=== PATIENT | female | born 1975 | race Caucasian/White ===

== ENCOUNTER 2023-09-02 13:42 | Emergency (ER) | payer BC, OTHER ==
[~2023-09-02] VITALS: Ht 162.6 cm; Wt 79.4 kg
[2023-09-02 13:58] VITALS: BP 146/66; TEMP 98.8
[2023-09-02] MEDS ORDERED: ALBU18HF2 INH (14:11)
[2023-09-02] MEDS ORDERED: ONDA4TAB5 PO (14:11)
[2023-09-02] MEDS ORDERED: ONDANSETRON 4 MG TAB.RAPDIS ONE (14:28)
[2023-09-02] MEDS ORDERED: BENZONATATE 100 MG CAPSULE PO ONE (14:28)
[2023-09-02] MEDS: ONDANSETRON 4 MG TAB.RAPDIS SL ONE (14:29)
[2023-09-02] MEDS: BENZONATATE 100 MG CAPSULE PO PRN (14:29)
[2023-09-02] MEDS ORDERED: ACETAMINOPHEN ES 500 MG TABLET ONE (14:37)
[2023-09-02] MEDS: ACETAMINOPHEN ES 500 MG TABLET PO ONE (14:46)
[2023-09-02 15:00] VITALS: O2SAT 99
== END 2023-09-02 15:01 | disposition home or self-care (01) ==
LOC: ER 13:53
DX: R05.9 Cough, unspecified (principal)
CPT/HCPCS: 99284; Q0162